=== PATIENT | female | born 1985 | race Caucasian/White ===

== ENCOUNTER 2020-05-01 18:33 | Inpatient (IN) | payer MEDICAID ==
[~2020-05-01] VITALS: Ht 162.6 cm; Wt 140.7 kg
[2020-05-01 20:15] LABS: HEMATOCRIT 48.5 % (36.0-48.0); HEMOGLOBIN 17.8 g/dL (12-16); MCH 32.5 pg (26.0-34.0); MCHC 36.7 g/dL (31.0-37.0); MCV 88.5 fL (80.0-100.0); MEAN PLATELET VOLUME 11.1 fL (7.4-10.4); PLATELET COUNT 284 10x3/uL (130-400); RBC 5.48 10x6/uL (4.00-5.40); WBC 13.3 10x3/uL (4.8-10.8)
--- NOTE | 2020-05-01 20:30 | NUR ---
FSBS 437
[2020-05-01 20:31] LABS: ALKALINE PHOSPHATASE 92 U/L (30-120); AMYLASE - SERUM 64 U/L (25-115); BILIRUBIN - TOTAL 0.82 mg/dL (0.2-1.3); CALCIUM 8.6 mg/dL (8.5-10.1); CARBON DIOXIDE 13.3 mmol/L (21.0-32.0); CHLORIDE - SERUM 94 mmol/L (98-107); POTASSIUM - SERUM 4.1 mmol/L (3.5-5.1); SODIUM 129 mmol/L (136-145); TROPONIN-I < 0.017 ng/mL (0.000-0.060); UREA NITROGEN 10 mg/dL (7-18); eGFR NON AFRICAN AMERICAN > 90 mL/min (90-120)
[2020-05-01 20:32] LABS: CALC OSMOLALITY 278 mosm/kg (275-300); CREATININE - SERUM 0.7 mg/dL (0.6-1.3); LIPASE 1629 U/L (73-393)
[2020-05-01 20:33] LABS: ALBUMIN 3.7 g/dL (3.4-5.0); GLUCOSE 468 mg/dL (74-106)
[2020-05-01 20:48] VITALS: BP 146/95
[2020-05-01 21:08] LABS: EOSINOPHILS 1 % (0-7); LYMPHOCYTES 19 % (15-50); NEUTROPHILS 80 % (40-80); PLATELET ESTIMATE NORMAL
[2020-05-01 22:47] VITALS: BP 150/90
--- NOTE | 2020-05-01 22:47 | NUR ---
FSBS 390. EDP INFORMED
[2020-05-01 23:34] LABS: BILIRUBIN NEGATIVE (NEGATIVE); GLUCOSE 1000 mg/dL (NEGATIVE); KETONE LARGE mg/dL (NEGATIVE); NITRITE NEGATIVE (NEGATIVE); UROBILINOGEN NORMAL (NORMAL)
[2020-05-02] VITALS (20 sets, daily range): BP systolic 111–183; BP diastolic 68–114; Ht 162.6 cm; Wt 140.7 kg
[2020-05-02 04:53] LABS: HCG URINE NEGATIVE (NEGATIVE)
[2020-05-02 05:18] LABS: BASOPHILS 0.2 % (0-2); EOSINOPHILS 0.1 % (0-7); HEMATOCRIT 42.5 % (36.0-48.0); HEMOGLOBIN 15.2 g/dL (12-16); IMMATURE GRANULOCYTES 0.4 % (0-5); LYMPHOCYTES 16.4 % (15-50); MCH 31.5 pg (26.0-34.0); MCHC 35.8 g/dL (31.0-37.0); MEAN PLATELET VOLUME 11.5 fL (7.4-10.4); MONOCYTES 7.2 % (2-11); NEUTROPHILS 75.7 % (40-80); PLATELET COUNT 258 10x3/uL (130-400); RBC 4.83 10x6/uL (4.00-5.40); RDW 13.1 % (11.5-14.5); WBC 13.4 10x3/uL (4.8-10.8)
[2020-05-02 05:40] LABS: GLUCOSE 247 mg/dL (74-106); UREA NITROGEN 10 mg/dL (7-18)
[2020-05-02 05:41] LABS: ALT (SGPT) 30 U/L (10-68); CALC OSMOLALITY 285 mosm/kg (275-300); CALCIUM 8.4 mg/dL (8.5-10.1); CARBON DIOXIDE 16.4 mmol/L (21.0-32.0); CHLORIDE - SERUM 107 mmol/L (98-107); CREATININE - SERUM 0.8 mg/dL (0.6-1.3); POTASSIUM - SERUM 4.1 mmol/L (3.5-5.1); SODIUM 140 mmol/L (136-145); eGFR NON AFRICAN AMERICAN 86 mL/min (90-120)
[2020-05-02 05:42] LABS: ALBUMIN 3.6 g/dL (3.4-5.0); ALKALINE PHOSPHATASE 70 U/L (30-120); PROTEIN - SERUM 6.4 g/dL (6.4-8.2)
[2020-05-02 07:17] LABS: ALT (SGPT) 34 U/L (10-68); PROTEIN - SERUM 7.2 g/dL (6.4-8.2)
[2020-05-02 12:56] LABS: CREATININE - SERUM 0.5 mg/dL (0.6-1.3); GLUCOSE 186 mg/dL (74-106); MAGNESIUM - SERUM 1.7 mg/dL (1.8-2.4); UREA NITROGEN 11 mg/dL (7-18); eGFR NON AFRICAN AMERICAN > 90 mL/min (90-120)
[2020-05-02 12:57] LABS: CALC OSMOLALITY 275 mosm/kg (275-300); CALCIUM 7.9 mg/dL (8.5-10.1); CARBON DIOXIDE 19.1 mmol/L (21.0-32.0); CHLORIDE - SERUM 104 mmol/L (98-107); POTASSIUM - SERUM 3.7 mmol/L (3.5-5.1); SODIUM 136 mmol/L (136-145)
[2020-05-02 16:51] LABS: CALCIUM 8.6 mg/dL (8.5-10.1); CARBON DIOXIDE 18.5 mmol/L (21.0-32.0); CHLORIDE - SERUM 106 mmol/L (98-107); GLUCOSE 204 mg/dL (74-106); MAGNESIUM - SERUM 1.7 mg/dL (1.8-2.4); SODIUM 136 mmol/L (136-145)
[2020-05-02 17:09] LABS: CALC OSMOLALITY 275 mosm/kg (275-300); CREATININE - SERUM 0.7 mg/dL (0.6-1.3); POTASSIUM - SERUM 3.1 mmol/L (3.5-5.1); UREA NITROGEN 8 mg/dL (7-18); eGFR NON AFRICAN AMERICAN > 90 mL/min (90-120)
--- NOTE | 2020-05-02 19:36 | NUR ---
REPORT RECEIVED, WILL CONTINUE POC. PATIENT IS AAOX4, LYING IN SEMI-FOWLERS POSITION. NO S/S OF DISTRESS OBSERVED, RR EVEN AND UNLABORED ON ROOM AIR. PATIENT ASKING ABOUT WHEN SHE CAN EAT, EDUCATED PATIENT ON INSULIN DRIP AND PROTOCOLS AND WHAT TO EXPECT. PATIENT EXPRESSES UNDERSTANDING. PATIENT DENIES FURTHER NEEDS AT THIS TIME. CL IN REACH, BED LOCKED AND LOWERED. WILL CTM.
--- NOTE | 2020-05-02 19:56 | NUR ---
CALLED PHARMACY FOR KAYCEE.
--- NOTE | 2020-05-02 20:14 | NUR ---
EMPTIED 300CC CONCENTRATED URINE FROM BEDSIDE COMMODE.
--- NOTE | 2020-05-02 21:11 | NUR ---
RECEIVED KAYCEE FROM PHARMACY @[facility], FSBS 135, 20UNITS ADMINISTERED PER ORDERS.
--- NOTE | 2020-05-02 23:10 | NUR ---
D/C'D INSULIN DRIP PER ORDERS. FSBS 127. PATIENT REQUESTED SANDWICH BOX AND ICE WATER, PROVIDED. SWITCHED IV ELECTROLYTE PROTOCOL TO FINISH BY PO.
[2020-05-03] VITALS (14 sets, daily range): BP systolic 120–182; BP diastolic 65–122
--- NOTE | 2020-05-03 00:36 | NUR ---
I have reviewed this patient and I concur with the Shift Assessment completed by the Licensed Practical Nurse today this shift.
--- NOTE | 2020-05-03 01:44 | NUR ---
PATIENT C/O THE ROOM BEING TOO WARM. WENT TO ADJUST ROOM TEMP BUT IT WAS ALREADY ON THE LOWEST SETTING. KEPT DOOR OPEN TO COOL ROOM DOWN.
--- NOTE | 2020-05-03 01:55 | NUR ---
SET UP FAN IN PATIENTS ROOM.
--- NOTE | 2020-05-03 03:00 | NUR ---
PATIENT RESTING WITH EYES CLOSED. NO S/S OF DISTRESS OBSERVED, RR EVEN AND UNLABORED ON ROOM AIR.
--- NOTE | 2020-05-03 05:00 | NUR ---
PATIENT RESTING WITH EYES CLOSED. NO S/S OF DISTRESS OBSERVED, RR EVEN AND UNLABORED ON ROOM AIR. CL IN REACH, BED LOCKED AND LOWERED. WILL CTM.
--- NOTE | 2020-05-03 06:59 | NUR ---
EMPTIED 700CC OF CONCENTRATED URINE FROM PATIENTS BEDSIDE COMMODE.
--- NOTE | 2020-05-03 07:00 | NUR ---
REPORT RECIEVED, SHIFT ASSESSMENT COMPLETE, PT IS ALERT AND ORIENTED, ALL PPP, VSS, CALL LIGHT IN REACH
[2020-05-03 07:56] LABS: ALBUMIN 2.7 g/dL (3.4-5.0); ALKALINE PHOSPHATASE 64 U/L (30-120); BILIRUBIN - TOTAL 0.49 mg/dL (0.2-1.3); CARBON DIOXIDE 22.4 mmol/L (21.0-32.0); CHLORIDE - SERUM 105 mmol/L (98-107); CREATININE - SERUM 0.6 mg/dL (0.6-1.3); POTASSIUM - SERUM 3.5 mmol/L (3.5-5.1); PROTEIN - SERUM 6.3 g/dL (6.4-8.2); SODIUM 136 mmol/L (136-145); eGFR NON AFRICAN AMERICAN > 90 mL/min (90-120)
[2020-05-03 07:57] LABS: ALT (SGPT) 27 U/L (10-68); CALC OSMOLALITY 280 mosm/kg (275-300); GLUCOSE 258 mg/dL (74-106); UREA NITROGEN 12 mg/dL (7-18)
--- NOTE | 2020-05-03 09:00 | NUR ---
PT RESTING WITH EYES CLOSED, WILL CON'T TO MONITOR
--- NOTE | 2020-05-03 10:54 | NUR ---
Nutrition follow-up: Diet advanced to consistent CHO with po intake ~50% of meals Labs reviewed WT: 302# RDN will visit when out of ICU RDN following.
--- NOTE | 2020-05-03 11:00 | NUR ---
DR. WILSON AT BEDSIDE, NEW ORDERS RECIEVED,
--- NOTE | 2020-05-03 13:00 | NUR ---
PT RESTING AT THIS TIME, VSS, CALL LIGHT IN REACH
--- NOTE | 2020-05-03 15:00 | NUR ---
FAMILY AT BEDSIDE, UPDATE GIVEN
--- NOTE | 2020-05-03 17:00 | NUR ---
PT SITTING UP EATING DINNER, DENIES ANY NEEDS
[2020-05-04 03:00] VITALS: BP 111/64
[2020-05-04 04:55] LABS: BASOPHILS 0.3 % (0-2); EOSINOPHILS 2.3 % (0-7); HEMATOCRIT 36.8 % (36.0-48.0); HEMOGLOBIN 12.2 g/dL (12-16); IMMATURE GRANULOCYTES 0.3 % (0-5); LYMPHOCYTES 34.7 % (15-50); MCH 29.5 pg (26.0-34.0); MCHC 33.2 g/dL (31.0-37.0); MCV 88.9 fL (80.0-100.0); MEAN PLATELET VOLUME 10.9 fL (7.4-10.4); MONOCYTES 9.2 % (2-11); NEUTROPHILS 53.2 % (40-80); RBC 4.14 10x6/uL (4.00-5.40); RDW 13.6 % (11.5-14.5)
[2020-05-04 05:08] LABS: PLATELET COUNT 203 10x3/uL (130-400); WBC 6.9 10x3/uL (4.8-10.8)
[2020-05-04 05:12] LABS: CALCIUM 8.1 mg/dL (8.5-10.1); CARBON DIOXIDE 23.8 mmol/L (21.0-32.0); CHLORIDE - SERUM 104 mmol/L (98-107); CREATININE - SERUM 0.6 mg/dL (0.6-1.3); LIPASE 192 U/L (73-393); MAGNESIUM - SERUM 1.7 mg/dL (1.8-2.4); SODIUM 136 mmol/L (136-145); UREA NITROGEN 9 mg/dL (7-18); eGFR NON AFRICAN AMERICAN > 90 mL/min (90-120)
[2020-05-04 05:19] LABS: CALC OSMOLALITY 276 mosm/kg (275-300); GLUCOSE 209 mg/dL (74-106); POTASSIUM - SERUM 2.9 mmol/L (3.5-5.1)
[2020-05-04 07:00] VITALS: BP 126/80
--- NOTE | 2020-05-04 07:00 | NUR ---
REPORT RECIEVED, SHIFT ASSESSMENT COMPLETE, PT IS ALERT AND ORIENTED, ON RA WITH 97% O2 SAT. ALL PPP, VSS, CALL LIGHT IN REACH
--- NOTE | 2020-05-04 09:00 | NUR ---
PT RESTING AT THIS TIME, NO NEEDS NOTED, WILL CON'T TO MONITOR
[2020-05-04 11:00] VITALS: BP 129/77
--- NOTE | 2020-05-04 11:40 | NUR ---
PT SITTING UP ON SIDE OF BED EATING LUNCH
--- NOTE | 2020-05-04 13:20 | NUR ---
NO NEEDS NOTED AT THIS TIME, WILL CON'T TO MONITOR
--- NOTE | 2020-05-04 15:30 | NUR ---
FAMILY AT BEDSIDE, UPDATE GIVEN
--- NOTE | 2020-05-04 17:29 | NUR ---
SUPPER TRAY GIVEN,
[2020-05-04 20:00] VITALS: BP 116/73
[2020-05-05] VITALS: BP 122/53
[2020-05-05 04:00] VITALS: BP 114/58
--- NOTE | 2020-05-05 06:08 | NUR ---
ASSESSED AT THE TIME SHE WAS BROUGHT FROM ICU AT THE BEGINNING OF THE SHIFT. SHE IS ALERT AND ORIENTED, ABLE TO VERBALIZE NEEDS. SHE HAS BEEN UP AD ANUEL TO THE BATHROOM WITH NO PROBLEM AND IS ON ROOM AIR.
--- NOTE | 2020-05-05 06:11 | NUR ---
PT'S BLOOD SUGAR LAST NIGHT WAS 325 AND THE MD HAD CHANGED IT TO 70/30 INSULIN. IT WAS GIVEN ORDERED. WILL CHECK LABS THIS AM TO SEE IF IT WAS EFFECTIVE IN BRINGING DOWN THE BLOOD SUGAR. HER NEXT ACC CHECK IS AT 0900.
--- NOTE | 2020-05-05 09:00 | NUR ---
ALERT AND ORIENTED X4. PATIENT EDUCATION GIVEN RELATED TO DM. PATIENT WAS INTRUCTED AND DEMONSTRATED PROPER ASEPTIC TECNIQUE ON DRAWING INSULIN AND GIVENING. PATIENT ADMINISTERED OWN INSULIN TO ABDOMEN. DENIES ANY PAIN OR DISCOMFORT AT THIS TIME. ABDOMEN OBESE WITH PANNUS WITHNO SKIN ISSURES NOTED. ENCOURAGED TO USE CALL LIGHT FOR ASSSIT.
[2020-05-05 10:29] VITALS: BP 148/93
[2020-05-05 12:09] LABS: CALCIUM 8.7 mg/dL (8.5-10.1); CARBON DIOXIDE 23.7 mmol/L (21.0-32.0); CHLORIDE - SERUM 102 mmol/L (98-107); CREATININE - SERUM 0.6 mg/dL (0.6-1.3); SODIUM 134 mmol/L (136-145); UREA NITROGEN 11 mg/dL (7-18); eGFR NON AFRICAN AMERICAN > 90 mL/min (90-120)
[2020-05-05 12:14] LABS: CALC OSMOLALITY 279 mosm/kg (275-300); GLUCOSE 329 mg/dL (74-106); POTASSIUM - SERUM 3.4 mmol/L (3.5-5.1)
--- NOTE | 2020-05-05 13:20 | NUR ---
Nutrition education for DMT2: Pt reports she stopped taking her diabetes medication 2/2 making her stomach hurt. Pt has had nutrition education before; hoever, pt just chooses not to follow recommendations. Pt was able to identify some CHO on her meal tray. Reviewed CHO containing foods and the affect CHO have on glucose. Pt repports having a glucometer at home and checking glucose regularly. Pt with fair understanding of information provided. Provided pt with printed diet information and RDN name and phone number. RDN will be available if needed. Thank you for the consult.
[2020-05-05 13:47] VITALS: BP 147/76
[2020-05-05] MEDS ORDERED: HUMULIN 70100 UNIT/1 SC (16:06)
--- NOTE | 2020-05-05 17:05 | NUR ---
IV DISCONTINUED AND VERBALIZED UNDERSTANDING OF DISCHARGE INSTRUCTIONS. STABLE AT TIME OF DISCHARGE.
== END 2020-05-05 17:05 | disposition home or self-care (01) | DRG 438 ==
LOC: EDBD 18:33 → D.ER 18:33 → D.ICU 22:44 → D.MS 05-04 19:07
PROVIDERS: Family Medicine; ADMIT Family Medicine; ATTEND Family Medicine
DX: K85.90 Acute pancreatitis without necrosis or infection, unspecified (principal); E11.10 Type 2 diabetes mellitus with ketoacidosis without coma; E87.1 Hypo-osmolality and hyponatremia; E87.2 Acidosis; E11.65 Type 2 diabetes mellitus with hyperglycemia; E66.01 Morbid (severe) obesity due to excess calories; F32.9 Major depressive disorder, single episode, unspecified; R00.0 Tachycardia, unspecified

== ENCOUNTER 2020-07-24 08:54 | Emergency (ER) | payer MEDICAID ==
[~2020-07-24] VITALS: Ht 162.6 cm; Wt 133.2 kg
[~2020-07-24 08:54] MED LIST: HUMULIN 70100 UNIT/1 SC
[2020-07-24 08:57] VITALS: Ht 162.6 cm; Wt 133.2 kg
[2020-07-24 09:34] LABS: BILIRUBIN NEGATIVE (NEGATIVE); KETONE NEGATIVE (NEGATIVE); NITRITE NEGATIVE (NEGATIVE); UROBILINOGEN NORMAL (NORMAL)
[2020-07-24 09:36] LABS: BACTERIA FEW /hpf (NONE SEEN); EPITHELIAL CELLS 0-5 /hpf (0-5); HCG URINE NEGATIVE (NEGATIVE); RED CELLS - URINE 0-5 /hpf (0-5); WHITE CELLS - URINE 0-5 /hpf (0-5)
[2020-07-24] MEDS ORDERED: ACETAMINOPHEN500 M1 PO (12:01)
[2020-07-24] MEDS ORDERED: CYCLOBENZAPRINE10 MG PO (12:01)
[2020-07-24] MEDS ORDERED: IBUPROFEN800 MG PO (12:01)
[2020-07-24] MEDS ORDERED: LEVOFLOXACIN500 MG PO (12:04)
[2020-07-24 12:13] VITALS: BP 122/83
== END 2020-07-24 12:14 | disposition home or self-care (01) ==
LOC: D.ER 08:54
PROVIDERS: Family Medicine
DX: M54.6 Pain in thoracic spine (principal); M79.18 Myalgia, other site; T14.8XXA Other injury of unspecified body region, initial encounter; N39.0 Urinary tract infection, site not specified; E11.9 Type 2 diabetes mellitus without complications; Z79.4 Long term (current) use of insulin

== ENCOUNTER 2020-08-17 07:40 | Inpatient (IN) | payer MEDICAID ==
[~2020-08-17] VITALS: Ht 162.6 cm; Wt 143.4 kg
[~2020-08-17 07:40] MED LIST changes: +ACETAMINOPHEN500 M1 PO; +CYCLOBENZAPRINE10 MG PO; +IBUPROFEN800 MG PO; +LEVOFLOXACIN500 MG PO
--- NOTE | 2020-08-17 09:31 | NUR ---
0830-PATIENT TO MRI
--- NOTE | 2020-08-17 10:17 | NUR ---
1015 RETURNED FROM MRI
[2020-08-17 11:02] LABS: BASOPHILS 0.2 % (0-2); EOSINOPHILS 0.1 % (0-7); HEMATOCRIT 38.9 % (36.0-48.0); IMMATURE GRANULOCYTES 0.2 % (0-5); LYMPHOCYTES 14.2 % (15-50); MCHC 33.4 g/dL (31.0-37.0); MCV 89.6 fL (80.0-100.0); MEAN PLATELET VOLUME 9.9 fL (7.4-10.4); MONOCYTES 4.6 % (2-11); NEUTROPHILS 80.7 % (40-80); RBC 4.34 10x6/uL (4.00-5.40); RDW 13.3 % (11.5-14.5); WBC 8.9 10x3/uL (4.8-10.8)
[2020-08-17 11:08] LABS: PLATELET COUNT 290 10x3/uL (130-400)
[2020-08-17 11:10] LABS: CALC OSMOLALITY 284 mosm/kg (275-300); CALCIUM 9.1 mg/dL (8.5-10.1); CARBON DIOXIDE 22.7 mmol/L (21.0-32.0); CHLORIDE - SERUM 103 mmol/L (98-107); CREATININE - SERUM 0.7 mg/dL (0.6-1.3); GLUCOSE 246 mg/dL (74-106); POTASSIUM - SERUM 4.5 mmol/L (3.5-5.1); SODIUM 137 mmol/L (136-145); UREA NITROGEN 21 mg/dL (7-18); eGFR NON AFRICAN AMERICAN > 90 mL/min (90-120)
[2020-08-17 11:13] VITALS: BP 121/83
[2020-08-17 11:16] LABS: ALBUMIN 3.5 g/dL (3.4-5.0); ALKALINE PHOSPHATASE 63 U/L (30-120); ALT (SGPT) 22 U/L (10-68); BILIRUBIN - TOTAL 0.13 mg/dL (0.2-1.3); C-REACTIVE PROTEIN 0.2 mg/dL (0.0-0.9); PROTEIN - SERUM 7.2 g/dL (6.4-8.2)
[2020-08-17 11:19] LABS: INR 1.12 (0.85-1.17); PROTIME 14.4 SECONDS (11.6-15.0)
[2020-08-17 16:50] VITALS: BP 150/65
--- NOTE | 2020-08-17 18:30 | NUR ---
PT C/O UNABLE TO VOID WITH ABDOMINAL PRESSURE. BLADDER SCANNED PT 900 CC OF URINE READ. PER PROVIDER LAXMI PLACE KELLER CATHETER. 16 FR KELLER CATHETER PLACED WITH TUBE SECURED TO LEFT UPPER LEG TEA COLORED URINE DISPLAYED IN CATH BAG.
[2020-08-17 18:33] VITALS: BP 133/74
[2020-08-17 18:43] LABS: UDS - AMPHET NEGATIVE QUAL (NEGATIVE); UDS - BARB NEGATIVE QUAL (NEGATIVE); UDS - BENZO NEGATIVE QUAL (NEGATIVE); UDS - COCAINE NEGATIVE QUAL (NEGATIVE); UDS - OPIATE NEGATIVE QUAL (NEGATIVE); UDS - PCP NEGATIVE QUAL (NEGATIVE); UDS - THC NEGATIVE QUAL (NEGATIVE)
[2020-08-17 18:47] LABS: BILIRUBIN NEGATIVE (NEGATIVE); KETONE SMALL mg/dL (NEGATIVE); NITRITE NEGATIVE (NEGATIVE); UROBILINOGEN NORMAL mg/dL (< 2); WHITE CELLS - URINE 0-5 HPF (0-4)
[2020-08-17 18:48] LABS: BACTERIA FEW HPF (NONE SEEN); EPITHELIAL CELLS 0-5 /hpf (0-5)
--- NOTE | 2020-08-17 19:16 | NUR ---
EMPTIED 1200 CC OF TEA COLORED URINE FROM CATH BAG.
[2020-08-17 20:04] VITALS: BP 115/70
[2020-08-17 21:26] VITALS: BP 119/62
[2020-08-18] VITALS (17 sets, daily range): BP systolic 92–141; BP diastolic 48–79; Ht 162.6 cm; Wt 143.4 kg
[2020-08-18] MEDS ORDERED: NOVOLOG100 UNIT/1 SC ×2 (00:21→00:27)
[2020-08-18] MEDS ORDERED: LANTUS INS100 UNITS/ SC (00:29)
[2020-08-18] MEDS ORDERED: CELEXA40 MG POINH (00:31)
[2020-08-18] MEDS ORDERED: PIOGLITAZONE15 MG PO (00:32)
[2020-08-18] MEDS ORDERED: ZOCOR20 MG PO (00:33)
[2020-08-18] MEDS ORDERED: AMBIEN10 MG PO (00:40)
[2020-08-18] MEDS ORDERED: MOBIC7.5 MG PO (00:43)
[2020-08-18 06:43] LABS: BASOPHILS 0.1 % (0-2); EOSINOPHILS 0.2 % (0-7); HEMATOCRIT 37.7 % (36.0-48.0); HEMOGLOBIN 12.3 g/dL (12-16); IMMATURE GRANULOCYTES 0.2 % (0-5); MCH 29.3 pg (26.0-34.0); MCHC 32.6 g/dL (31.0-37.0); MCV 89.8 fL (80.0-100.0); MEAN PLATELET VOLUME 9.6 fL (7.4-10.4); MONOCYTES 8.7 % (2-11); NEUTROPHILS 68.8 % (40-80); RDW 13.5 % (11.5-14.5)
[2020-08-18 06:45] LABS: PLATELET COUNT 364 10x3/uL (130-400)
[2020-08-18 07:03] LABS: CALC OSMOLALITY 278 mosm/kg (275-300); CALCIUM 9.1 mg/dL (8.5-10.1); CARBON DIOXIDE 25.5 mmol/L (21.0-32.0); CHLORIDE - SERUM 103 mmol/L (98-107); CREATININE - SERUM 0.6 mg/dL (0.6-1.3); GLUCOSE 167 mg/dL (74-106); MAGNESIUM - SERUM 2.1 mg/dL (1.8-2.4); PHOSPHOROUS 3.9 mg/dL (2.5-4.9); POTASSIUM - SERUM 3.5 mmol/L (3.5-5.1); SODIUM 137 mmol/L (136-145); UREA NITROGEN 16 mg/dL (7-18); eGFR NON AFRICAN AMERICAN > 90 mL/min (90-120)
[2020-08-18 07:16] LABS: INR 1.2 (0.85-1.17); PROTIME 15.1 SECONDS (11.6-15.0)
[2020-08-18 11:19] LABS: HCG SERUM NEGATIVE (NEGATIVE)
--- NOTE | 2020-08-18 14:19 | NUR ---
NO DIFFICULTY SWALLOWING NO TRACHAEL DEVIATION NO NUMBNESS TO UPPER AND LOWER EXTREMETIES EQUAL STRENGHTS TO UPPER EXTREMETIES REPORTS NO MOVMENT TO RT LOWER EXTREMETRY
--- NOTE | 2020-08-18 14:22 | NUR ---
PT REPORTED NO NUMBNESS TO RT LEG BUT NO MOVEMENT OBSERVED
--- NOTE | 2020-08-18 17:42 | NUR ---
PATIENT DENIES NEEDS AT THIS TIME. FREE FROM SIGNS OF DISTRESS. WILL CONTINUE TO MONITOR.
--- NOTE | 2020-08-18 17:45 | NUR ---
SPOKE WITH DR. GARCIA ABOUT TRANSFERRING PATIENT TO CVICU. DR. GARCIA STATED "YES, PATIENT NEEDS TO BE IN CVICU FOR OBSERVATION." CALLED BATH TESTER TO RELAY MESSAGE.
--- NOTE | 2020-08-18 19:20 | NUR ---
REPORT REC'D AND CARE ASSUMED, REC'D PT RESTING IN BED ON O2 @ 3 LITERS VIA NC, AWAKENS TO VERBAL STIMULI, ORIENTED X 4, LEFT UPPER CHEST PIV D51/2NS @ 75CC/HR, LEFT ANTERIOR NECK INCISION WITH DERMABOND, CDI, LEFT HAND PIV TAPED SECURELY, SALINE LOCKED, KELLER PATENT DRAINING CLEAR YELLOW URINE, PPP, LEFT TELLER HEAD STRONGER THAN RIGHT, ABLE TO RAISE BOTH ARMS, BENDS LEFT KNEE BUT BARELY MOVES RIGHT LEG TO ATTEMPT TO BEND KNEE, PREVIOUSLY REPORTED BY AM SHIFT TO DR. GARCIA, WILL MONITOR CLOSELY FOR CHANGES, SR UP X 2, CALL LIGHT IN REACH.
--- NOTE | 2020-08-18 21:05 | NUR ---
PT AWAKE COMPLAINS OF FEELING "LIKE I AM GOING TO THROW UP", ZOFRAN GIVEN SLOW IVP FOR NAUSEA, OTHER ROUTINE MEDS GIVEN AT THIS TIME, PT DENIES FURTHER NEEDS.
[2020-08-19] VITALS (24 sets, daily range): BP systolic 100–134; BP diastolic 63–82
--- NOTE | 2020-08-19 01:10 | NUR ---
PT MORE ALERT, DENIES NAUSEA AT THIS TIME AND ONLY SLIGHT DISCOMFORT, REFUSES ANY PAIN MEDICATION AT THIS TIME, PT REPORTS UPPER EXT'S FEEL BETTER WITH NO NUMBNESS OR TINGLING, BILAT LOWER EXT'S WITH TINGLING SENSATION, CAN MOVE LEFT LEFT WITHOUT DIFFICULTY, SLIGHT FLEXION OF RIGHT LEG NOTED, RIGHT LEG STRENGTH SLIGHTLY WEAKER THAN LEFT, ICE CHIPS PROVIDED ON REQUEST
[2020-08-19 08:15] LABS: BASOPHILS 0 % (0-2); EOSINOPHILS 0 % (0-7); HEMATOCRIT 40.8 % (36.0-48.0); HEMOGLOBIN 13.3 g/dL (12-16); IMMATURE GRANULOCYTES 0.2 % (0-5); LYMPHOCYTES 6.4 % (15-50); MCH 29.6 pg (26.0-34.0); MCHC 32.6 g/dL (31.0-37.0); MCV 90.7 fL (80.0-100.0); MEAN PLATELET VOLUME 9.3 fL (7.4-10.4); MONOCYTES 5.2 % (2-11); NEUTROPHILS 88.2 % (40-80); PLATELET COUNT 325 10x3/uL (130-400); RDW 13.4 % (11.5-14.5)
[2020-08-19 08:22] LABS: WBC 16.1 10x3/uL (4.8-10.8)
[2020-08-19 08:50] LABS: ALBUMIN 3.6 g/dL (3.4-5.0); ALKALINE PHOSPHATASE 70 U/L (30-120); ALT (SGPT) 24 U/L (10-68); BILIRUBIN - TOTAL 0.34 mg/dL (0.2-1.3); CALC OSMOLALITY 287 mosm/kg (275-300); CARBON DIOXIDE 26.7 mmol/L (21.0-32.0); CHLORIDE - SERUM 100 mmol/L (98-107); CREATININE - SERUM 0.7 mg/dL (0.6-1.3); GLUCOSE 292 mg/dL (74-106); POTASSIUM - SERUM 3.9 mmol/L (3.5-5.1); PROTEIN - SERUM 7.5 g/dL (6.4-8.2); SODIUM 138 mmol/L (136-145); UREA NITROGEN 16 mg/dL (7-18); eGFR NON AFRICAN AMERICAN > 90 mL/min (90-120)
--- NOTE | 2020-08-19 18:57 | NUR ---
Rehab Note- Acute Rehab prescreen order recieved. The patient has [employer] insurance and will require a PreAuth prior to an inpatient rehab stay. She has a pending PT Eval and will need an OT Eval ordered for the PreAuth process. Thank you for this referral! Emmy Motta RN Clinical Liaison, [facility] Rehab
--- NOTE | 2020-08-19 19:30 | NUR ---
REPORT REC'D AND CARE ASSUMED, REC'D PT LAYING IN BED WATCHING TV, ON ROOM AIR, AWAKE, ALERT, ORIENTED X 4, LEFT HAND PIV SALINE LOCKED, LEFT UPPER CHEST PIV WITH D51/2NS @ 50CC/HR, LEFT ANTERIOR NECK INCISION OPEN TO AIR, CDI, BILAT UPPER EXT DIRECTOR PROJECT MANAGEMENT STRENGTH EQUAL, RIGHT LEG WEAKER THAN LEFT, PT ABLE TO RAISE AND FLEX LEG MORE THAN PREVIOUS DAY, CONTINUES TO REPORT SLIGHT NUMBENESS THROUGHOUT RIGHT LEG, REPORTS RIGHT TOES COMPLETELY NUMB, KELLER PATENT DRAINING CLEAR YELLOW URINE, PPP, SR UP X 2 ,CALL LIGHT IN REACH.
[2020-08-20] VITALS (23 sets, daily range): BP systolic 99–134; BP diastolic 39–85
[2020-08-20 06:45] LABS: BASOPHILS 0 % (0-2); EOSINOPHILS 0 % (0-7); HEMATOCRIT 38.6 % (36.0-48.0); HEMOGLOBIN 12.6 g/dL (12-16); IMMATURE GRANULOCYTES 0.3 % (0-5); LYMPHOCYTES 6.7 % (15-50); MCH 29.4 pg (26.0-34.0); MCHC 32.6 g/dL (31.0-37.0); MEAN PLATELET VOLUME 9.5 fL (7.4-10.4); PLATELET COUNT 312 10x3/uL (130-400); RBC 4.29 10x6/uL (4.00-5.40); RDW 13.5 % (11.5-14.5); WBC 13.5 10x3/uL (4.8-10.8)
[2020-08-20 07:00] LABS: ALKALINE PHOSPHATASE 61 U/L (30-120); ALT (SGPT) 30 U/L (10-68); BILIRUBIN - TOTAL 0.25 mg/dL (0.2-1.3); CALC OSMOLALITY 280 mosm/kg (275-300); CALCIUM 8.6 mg/dL (8.5-10.1); CHLORIDE - SERUM 101 mmol/L (98-107); CREATININE - SERUM 0.7 mg/dL (0.6-1.3); GLUCOSE 285 mg/dL (74-106); MAGNESIUM - SERUM 2.2 mg/dL (1.8-2.4); POTASSIUM - SERUM 3.8 mmol/L (3.5-5.1); SODIUM 135 mmol/L (136-145); UREA NITROGEN 16 mg/dL (7-18); eGFR NON AFRICAN AMERICAN > 90 mL/min (90-120)
--- NOTE | 2020-08-20 09:58 | NUR ---
PT EVAL DONE. PT UP TO BSC AND DID HAVE BM. ASSISTED TO CHAIR FOR BATH.
--- NOTE | 2020-08-20 14:35 | NUR ---
ASSISTED PT BACK TO BED WITH WALKER.
[2020-08-21] VITALS (14 sets, daily range): BP systolic 112–142; BP diastolic 63–86
[2020-08-21 06:26] LABS: BASOPHILS 0 % (0-2); EOSINOPHILS 0 % (0-7); HEMATOCRIT 38.8 % (36.0-48.0); HEMOGLOBIN 12.5 g/dL (12-16); IMMATURE GRANULOCYTES 0.4 % (0-5); LYMPHOCYTES 8.8 % (15-50); MCH 29.1 pg (26.0-34.0); MCHC 32.2 g/dL (31.0-37.0); MCV 90.4 fL (80.0-100.0); MEAN PLATELET VOLUME 9.9 fL (7.4-10.4); MONOCYTES 5.5 % (2-11); NEUTROPHILS 85.3 % (40-80); PLATELET COUNT 327 10x3/uL (130-400); RBC 4.29 10x6/uL (4.00-5.40); RDW 13.5 % (11.5-14.5); WBC 11.1 10x3/uL (4.8-10.8)
[2020-08-21 06:51] LABS: ALKALINE PHOSPHATASE 62 U/L (30-120); ALT (SGPT) 26 U/L (10-68); BILIRUBIN - TOTAL 0.28 mg/dL (0.2-1.3); CALC OSMOLALITY 283 mosm/kg (275-300); CALCIUM 8.8 mg/dL (8.5-10.1); CARBON DIOXIDE 26.8 mmol/L (21.0-32.0); CHLORIDE - SERUM 101 mmol/L (98-107); CREATININE - SERUM 0.6 mg/dL (0.6-1.3); GLUCOSE 308 mg/dL (74-106); MAGNESIUM - SERUM 2.2 mg/dL (1.8-2.4); POTASSIUM - SERUM 3.9 mmol/L (3.5-5.1); PROTEIN - SERUM 6.9 g/dL (6.4-8.2); SODIUM 135 mmol/L (136-145); UREA NITROGEN 19 mg/dL (7-18); eGFR NON AFRICAN AMERICAN > 90 mL/min (90-120)
--- NOTE | 2020-08-21 07:00 | NUR ---
FSBS TO 437, 20 UNITS OF HUMOLOG GIVEN PER S/S, CALLED JUDIE MOTLEY NOTED OF PT STATUS, NO ORDER RECD. CONT TO MONITOR.
--- NOTE | 2020-08-21 11:56 | NUR ---
1140 GAVE REPORT TO JOELLE ON [employer]. NOTIFIED OF FSBS OF 307.
--- NOTE | 2020-08-21 12:32 | NUR ---
Rehab Note- SPoke with Yovani to initiate preauth this AM, [facility], stated that no further action required and PreAuth waived with Private [employer] at this time due to Covid up till 09/08. Ref/Auth # [id number]. Spoke with Leandra Curtis CM this AM and will accept the patient today if in agreeance with [facility] Acute Inpatient Rehab. THank you for this referral! Emmy Motta RN Clinical Liaison, [facility] Rehab
--- NOTE | 2020-08-21 20:00 | NUR ---
LEFT SIDE LYING IN BED, PTs FACE IS FLUSHED, STATES THIS IS NORMAL FOR HER AFTER ROLLING AROUND IN BED. DENIES PAIN, REPORTS LIMITED MOVEMENT AND FEELING IN RLE. UP WITH WALKER, STANDBY ASSIST. CTM.
[2020-08-22] VITALS: BP 152/91
--- NOTE | 2020-08-22 02:23 | NUR ---
I have reviewed this patient and I concur with the Shift Assessment completed by the Licensed Practical Nurse today this shift.
[2020-08-22 04:00] VITALS: BP 139/77
[2020-08-22 06:45] LABS: BASOPHILS 0 % (0-2); EOSINOPHILS 0 % (0-7); HEMATOCRIT 40.4 % (36.0-48.0); HEMOGLOBIN 13.2 g/dL (12-16); LYMPHOCYTES 8.3 % (15-50); MCH 29.4 pg (26.0-34.0); MCHC 32.7 g/dL (31.0-37.0); MONOCYTES 6.1 % (2-11); NEUTROPHILS 84.6 % (40-80); PLATELET COUNT 329 10x3/uL (130-400); RBC 4.49 10x6/uL (4.00-5.40); RDW 13.3 % (11.5-14.5); WBC 10.3 10x3/uL (4.8-10.8)
[2020-08-22 07:00] VITALS: BP 114/53
[2020-08-22 07:05] LABS: ALBUMIN 3.1 g/dL (3.4-5.0); ALKALINE PHOSPHATASE 69 U/L (30-120); ALT (SGPT) 23 U/L (10-68); BILIRUBIN - TOTAL 0.33 mg/dL (0.2-1.3); CARBON DIOXIDE 25.4 mmol/L (21.0-32.0); CHLORIDE - SERUM 98 mmol/L (98-107); MAGNESIUM - SERUM 2.4 mg/dL (1.8-2.4); POTASSIUM - SERUM 3.9 mmol/L (3.5-5.1); SODIUM 133 mmol/L (136-145)
[2020-08-22 07:06] LABS: CALC OSMOLALITY 285 mosm/kg (275-300); CREATININE - SERUM 0.8 mg/dL (0.6-1.3); GLUCOSE 380 mg/dL (74-106); UREA NITROGEN 25 mg/dL (7-18); eGFR NON AFRICAN AMERICAN 86 mL/min (90-120)
--- NOTE | 2020-08-22 07:34 | NUR ---
PATIENT AWAKE LATING IN BED ON LEFT SIDE, STATED SHE HAD SOME PAIN LAST NIGHT AND THIS MORNING BUT THINKS IT IS FROM SLEEPING WRONG. NO S/SX OF DISTRESS, LUNGS CTA, IV IN LEFT HAND SL. PT TO BE DC TO REHAB TODAY. CL IN REACH CONTINUE WITH PLAN OF CARE
[2020-08-22 11:00] VITALS: BP 118/56
[2020-08-22] MEDS ORDERED: MIRALAX17 GM PO (11:04)
[2020-08-22] MEDS ORDERED: HUMALOG 30100 UNITS/ SC (11:04)
[2020-08-22] MEDS ORDERED: PHENERGAN IM (11:06)
[2020-08-22] MEDS ORDERED: IPRAT-ALBUT 0.5-3 ML INH (11:06)
[2020-08-22] MEDS ORDERED: METHOCARBAMOL750 MG PO (11:06)
[2020-08-22] MEDS ORDERED: GLUTOSE 1537.5 GM PO (11:07)
[2020-08-22] MEDS ORDERED: Dextrose 50%-Water I IV (11:07)
[2020-08-22] MEDS ORDERED: NEUTRA-PHOS PAC1 PK1 PO (11:08)
[2020-08-22] MEDS ORDERED: POTASSIUM20 MEQ/101 IV (11:08)
[2020-08-22] MEDS ORDERED: Potassium Cl oral po PO (11:08)
[2020-08-22] MEDS ORDERED: POTASSIUM10 MEQ/100 IV (11:08)
[2020-08-22] MEDS ORDERED: K-DUR20 MEQ PO (11:08)
[2020-08-22] MEDS ORDERED: GLUCAGEN IM (11:09)
[2020-08-22] MEDS ORDERED: Decadron INJ IV (11:09)
[2020-08-22] MEDS ORDERED: GLUCAGEN SC (11:09)
[2020-08-22] MEDS ORDERED: ZOFRAN INJ IV (11:09)
[2020-08-22] MEDS ORDERED: HYDROCODON-ACE1 EAC7 PO (11:12)
[2020-08-22] MEDS ORDERED: MEDROL DOSE PACK4 MG PO (12:32)
--- NOTE | 2020-08-24 11:53 | OP ---
PATIENT NAME: MICH MACEDO MEDICAL RECORD: [id number] :83 LOCATION:[id number] ADMISSION DATE:08/17/20 SURGEON: JEANNE HUBBARD MD DATE OF OPERATION: 08/18/2020 SURGEON: Jeanne Hubbard MD Anterior cervical discectomy and fusion at C6-C7 for decompression of spinal cord secondary to large disc herniation C6-C7. PREOPERATIVE DIAGNOSIS: Spinal cord injury secondary to acute disc herniation, C6-C7. POSTOPERATIVE DIAGNOSIS: Spinal cord injury secondary to acute disc herniation, C6-C7. PROCEDURE: Anterior cervical discectomy and fusion at C6-C7 with Zavation anterior cervical plate and screws with separate PEEK interbody cage, Rama bone allograft with stem cells. DESCRIPTION AND TECHNIQUE: After induction of general endotracheal anesthesia, the patient was positioned supine on the operating table. Neck was prepped and draped in usual sterile fashion. Fluoroscopic x-ray and freer localized the C6-C7 interspace. After infiltration of 1:100,000 epinephrine and 1% lidocaine, a transverse skin incision was carried out from the midline to the sternocleidomastoid muscle. The platysma was divided with Bovie cautery. Using blunt and sharp dissection with Metzenbaum scissors, I proceeded in avascular plane medial to the carotid sheath. The C6-C7 interspace was identified with fluoroscopic x-ray and spinal needle. The longus colli muscles were elevated from bodies of C6 and C7. A self-retaining retractor was placed deep to the longus colli muscles. [place] distracting pins were placed by C6 and C7. The disc space was incised under distraction. The disc material was removed with the pituitary rongeurs and curettes. There is a large disc herniation extruded through the posterior longitudinal ligament. This was removed in a piecemeal fashion with pituitary rongeurs. The posterior longitudinal ligament was removed with Cloward rongeurs. Following this, the dura was decompressed well. A PEEK interbody cage was placed in the disc space under distraction. Prior to this, it was filled with Rama bone allograft with stem cells. A midline Zavation anterior cervical plate and screws was used to span the C6-C7 interspace. Self-drilling screws were placed through the holes and plate. These were locking camps tightened down over the screw heads. Good position of the hardware was confirmed with fluoroscopic x-ray. Meticulous hemostasis was maintained throughout the wound. Wound was irrigated with copious amounts of Ancef irrigant solution. The platysma and subdermal layer closed with interrupted 3-0 Vicryl suture. The skin was reapproximated with Steri-Strips and benzoin. A sterile dressing was applied to the wound. The patient was awakened in good condition, taken to recovery. All counts were reported as correct. Estimated blood loss was minimal. TRANSINT:[id number] Voice Confirmation ID: [id number] DOCUMENT ID: [id number] OPERATIVE REPORT [id number] MICH MACEDO JOHN MD at 1153 CC: [id number] DICTATION DATE: 08/20/20 1227 SUPERVISOR TITLE: 08/21/20 0039 DIS IN 08/22/20 [facility] [address] [place] [address]
== END 2020-08-22 15:36 | DRG 28 ==
LOC: D.ER 07:40 → D.MS 12:05 → D.EDHOLD 12:05 → D.CVICU 12:05 → D.MS 22:08 → D.CVICU 08-18 18:30 → D.MS 08-21 11:57
PROVIDERS: Anesthesiology; Family Medicine; Family Medicine Adult Medicine; Neurological Surgery; ADMIT Family Medicine; ATTEND Family Medicine
PROC: 0RB30ZZ Excision of Cervical Vertebral Disc, Open Approach (ICD-10-PCS; 2020-08-18)
PROC: 0RG10A0 Fusion of Cervical Vertebral Joint with Interbody Fusion Device, Anterior Approach, Anterior Column, Open Approach (ICD-10-PCS; principal; 2020-08-18 10:15)
DX: G95.20 Unspecified cord compression (principal); G82.50 Quadriplegia, unspecified; E66.01 Morbid (severe) obesity due to excess calories; M50.223 Other cervical disc displacement at C6-C7 level; E11.65 Type 2 diabetes mellitus with hyperglycemia; F32.9 Major depressive disorder, single episode, unspecified

== ENCOUNTER 2020-08-22 15:54 | Inpatient (IN) | payer BC ==
[~2020-08-22] VITALS: Ht 162.6 cm; Wt 142.9 kg
[~2020-08-22 15:54] MED LIST changes: +AMBIEN10 MG PO; +CELEXA40 MG POINH; +Decadron INJ IV; +Dextrose 50%-Water I IV; +GLUCAGEN IM; +GLUCAGEN SC; +GLUTOSE 1537.5 GM PO; +HUMALOG 30100 UNITS/ SC; +HYDROCODON-ACE1 EAC7 PO; +IPRAT-ALBUT 0.5-3 ML INH; +K-DUR20 MEQ PO; +LANTUS INS100 UNITS/ SC; +MEDROL DOSE PACK4 MG PO; +METHOCARBAMOL750 MG PO; +MIRALAX17 GM PO; +MOBIC7.5 MG PO; +NEUTRA-PHOS PAC1 PK1 PO; +NOVOLOG100 UNIT/1 SC; +PHENERGAN IM; +PIOGLITAZONE15 MG PO; +POTASSIUM10 MEQ/100 IV; +POTASSIUM20 MEQ/101 IV; +Potassium Cl oral po PO; +ZOCOR20 MG PO; +ZOFRAN INJ IV
[2020-08-22 16:14] VITALS: BP 131/82; BMI 54.2
--- NOTE | 2020-08-22 19:14 | NUR ---
AWAKE AND ALERT. SITTING ON SIDE OF BED. C-COLLAR ON. RESPIRATIONS UNLABORED. NO DISTRESS NOTED. CALL LIGHT IN REACH.
[2020-08-22 20:11] VITALS: BP 129/61
--- NOTE | 2020-08-23 01:23 | NUR ---
RESTING IN BED WITH NO DISTRESS NOTED. CALL EDIN RAO.
--- NOTE | 2020-08-23 05:00 | NUR ---
QUIET HOURS. NO ACUTE CHANGES IN CONDITION THIS SHIFT. RESTING IN BED WITH NO DISTRESS NOTED.
[2020-08-23 05:41] LABS: BASOPHILS 0 % (0-2); EOSINOPHILS 0.4 % (0-7); HEMATOCRIT 40.7 % (36.0-48.0); HEMOGLOBIN 13.2 g/dL (12-16); IMMATURE GRANULOCYTES 0.7 % (0-5); LYMPHOCYTES 29.5 % (15-50); MCH 29.1 pg (26.0-34.0); MCHC 32.4 g/dL (31.0-37.0); MCV 89.8 fL (80.0-100.0); MEAN PLATELET VOLUME 9.6 fL (7.4-10.4); MONOCYTES 7.5 % (2-11); NEUTROPHILS 61.9 % (40-80); PLATELET COUNT 309 10x3/uL (130-400); RBC 4.53 10x6/uL (4.00-5.40); RDW 13.3 % (11.5-14.5)
[2020-08-23 05:47] LABS: WBC 12.9 10x3/uL (4.8-10.8)
[2020-08-23 06:00] LABS: CALC OSMOLALITY 284 mosm/kg (275-300); CALCIUM 8.3 mg/dL (8.5-10.1); CARBON DIOXIDE 27.8 mmol/L (21.0-32.0); CHLORIDE - SERUM 101 mmol/L (98-107); CREATININE - SERUM 0.7 mg/dL (0.6-1.3); POTASSIUM - SERUM 3.5 mmol/L (3.5-5.1); SODIUM 136 mmol/L (136-145); UREA NITROGEN 27 mg/dL (7-18); eGFR NON AFRICAN AMERICAN > 90 mL/min (90-120)
[2020-08-23 06:15] LABS: GLUCOSE 236 mg/dL (74-106)
[2020-08-23 07:23] VITALS: BP 133/76
--- NOTE | 2020-08-23 08:00 | NUR ---
SHIFT ASSMT COMPLETED.
--- NOTE | 2020-08-23 11:23 | NUR ---
PATIENT ADMITTED TO REHAB FROM ACUTE FLOOR. HER PCP IS DR. FONTANEZ . SHE WILL NEED AN APPOINTMENT WITH DR. GARCIA AT DISCHARGE. WILL CONTINUE TO FOLLOW WITH PATIENT.
--- NOTE | 2020-08-23 12:00 | NUR ---
SITTING UP EATING LUNCH.
[2020-08-23 12:56] VITALS: Ht 162.6 cm; Wt 142.9 kg
--- NOTE | 2020-08-23 13:00 | NUR ---
CARE TEAM MEETING: PATIENT IS NEW TO UNIT AND IS DOING WELL. HER TENATIVE DC DATE IS 08/25/20. WILL CONTINUE TO FOLLOW WITH PATIENT.
--- NOTE | 2020-08-23 16:00 | NUR ---
BRENDEN THERAPY TODAY.RESTING QUIETLY.
[2020-08-23 19:50] VITALS: BP 105/48
--- NOTE | 2020-08-23 19:58 | NUR ---
AWAKE AND ALERT. RESTING IN BED WITH RESPIRATIONS UNLABORED. SWEATING A LITTLE BUT AFEBRILE. STATES SHE IS JUST A LITTLE WARM. FAN OFFERED BUT PATIENT STATED "NO ITS OKAY." CALL LIGHT IN REACH.
--- NOTE | 2020-08-24 00:49 | NUR ---
RESTING QUIETLY. NO DISTRESS NOTED.
--- NOTE | 2020-08-24 03:11 | NUR ---
CONTINUES RESTING WITH NO DISTRESS NOTED.
--- NOTE | 2020-08-24 05:10 | NUR ---
QUIET HOURS. NO ACUTE CHANGES IN CONDITION THIS SHIFT. RESTING IN BED WITH NO DISTRESS NOTED. CALL LIGHT IN REACH.
[2020-08-24 08:00] VITALS: BP 118/79
--- NOTE | 2020-08-24 08:00 | NUR ---
SHIFT ASSMT COMPLETED.BREAKFAST EATEN IN THERAPY.CL IN REACH.
--- NOTE | 2020-08-24 18:52 | NUR ---
RECEIVED PT SITTING UP ON SIDE OF BED. ALERT AND ORIENTED X4. DENIES ANY NEEDS OR PAIN. NO ACUTE DISTRESS NOTED. LEFT ANTERIOR LATERAL GLUED INCISION WNL. NO DRAINGAGE NOTED. BED ALARM WAIVER ON FILE. CALL LIGHT AND WATER WITHIN REACH. FALL PRECAUTIONS IN PLACE. CPOC
[2020-08-24 20:40] VITALS: BP 134/79
--- NOTE | 2020-08-24 23:57 | NUR ---
PT LYING IN BED ON LEFT SIDE EYES CLOSED RESTING. RR EVEN AND UNLABORED. CALL LIGHT WITHIN REACH. WILL CONTINUE TO MONITOR
--- NOTE | 2020-08-25 01:53 | NUR ---
PT LYING IN BED ON LEFT SIDE EYES CLOSED RESTING. RR EVEN AND UNLABORED. CALL LIGHT WITHIN REACH
--- NOTE | 2020-08-25 04:10 | NUR ---
PT LYING IN BED ON RIGHT SIDE EYES CLOSED RESTING. RR EVEN AND UNLABORED. CALL LIGHT WITHIN REACH.
--- NOTE | 2020-08-25 05:45 | NUR ---
PT SITTING UP IN BED AWAKE. LAB AT BEDSIDE. DENIES ANY NEEDS OR PAIN. NO ACUTE CHANGES IN CONDITION THIS SHIFT. CALL LIGHT AND WATER WITHIN REACH. FALL PRECAUTIONS IN PLACE. CPOC
[2020-08-25 06:07] LABS: BASOPHILS 0.1 % (0-2); EOSINOPHILS 0.8 % (0-7); HEMOGLOBIN 14.2 g/dL (12-16); LYMPHOCYTES 19.6 % (15-50); MCH 29.5 pg (26.0-34.0); MCV 89.4 fL (80.0-100.0); MEAN PLATELET VOLUME 10.4 fL (7.4-10.4); MONOCYTES 5.1 % (2-11); NEUTROPHILS 73.4 % (40-80); PLATELET COUNT 191 10x3/uL (130-400); RBC 4.81 10x6/uL (4.00-5.40); RDW 13.3 % (11.5-14.5)
[2020-08-25 06:17] LABS: CALC OSMOLALITY 274 mosm/kg (275-300); CALCIUM 8.8 mg/dL (8.5-10.1); CARBON DIOXIDE 25.4 mmol/L (21.0-32.0); CHLORIDE - SERUM 98 mmol/L (98-107); CREATININE - SERUM 0.6 mg/dL (0.6-1.3); GLUCOSE 278 mg/dL (74-106); POTASSIUM - SERUM 4.4 mmol/L (3.5-5.1); SODIUM 131 mmol/L (136-145); UREA NITROGEN 18 mg/dL (7-18); eGFR NON AFRICAN AMERICAN > 90 mL/min (90-120)
[2020-08-25 08:00] VITALS: BP 116/68
[2020-08-25] MEDS ORDERED: HYDROCODON-ACE1 EAC7 PO (08:40)
[2020-08-25] MEDS ORDERED: METHOCARBAMOL750 MG PO (08:40)
--- NOTE | 2020-08-25 08:42 | RHP ---
PATIENT: MICH MACEDO MEDICAL RECORD: [id number] ACCOUNT: [id number] [facility] ADMISSION DATE: 08/22/20 REHABILITATION HISTORY AND PHYSICAL EXAMINATION POST ADMISSION PHYSICIAN EXAMINATION ADMITTING DIAGNOSIS: Traumatic spinal cord dysfunction. HISTORY OF PRESENT ILLNESS: The patient is a 34-year-old female patient who presents secondary to a large central disk protrusion at C6-C7 producing mass effect on the spinal cord. The patient is status post anterior cervical discectomy and fusion at C6-C7 decompression of spinal cord injury. She is morbidly obese, presented to ED after complaints of some thoracic pain following a fall and numbness of her left arm and right leg with motor deficits with her right leg. She was seen in the [place] ED the night before prior to this, was given 2 shots and sent home. She had no head injury or loss of consciousness. She has got a history of diabetes, morbid obesity, depression. The patient states that she started having a lot of back pain. She felt pain sensation in both of her upper extremities and noticed she was very weak on the right upper extremity and lost ability to grasp with the right hand. The patient was seen and evaluated. At that time, she could not walk. CT of her cervical spine showed a central disk protrusion at C6-C7 and she had significant mass effect on the spinal cord, which appeared thin and associated increased T2 significant for myelomalacia and spinal cord contusion. There was also moderate bilateral neural foraminal stenosis noted at this time. Neurosurgery was consulted. She underwent an emergent anterior cervical discectomy and fusion of C6-C7 for decompression by Dr. Hubbard. She has had a good outcome from the surgery and has ability to stand and ambulate with regaining sensation. She has diabetes and has had some elevated blood sugars. She has been receiving PT and progressing slowly during her stay. She is currently being monitored for pain control, that she gets medication adjustments depending on her blood sugar. We are monitoring her I's and O's, monitoring her for any signs of low sugars. She has got proximal muscle weakness, fatigue, shortness of breath, debility, deconditioning, impaired mobility, gait disturbance and she is a fall risk. These are all barriers to her discharge home. Currently set up for max assist for ADLs, mod assist for mobility with use of a rolling walker and using a soft neck brace. She plans to return home hopefully at her prior level of functioning. COMORBIDITIES: Include weakness, morbid obesity, large central disk extrusion. She has got scbutovh-wg-rwoeun spinal stenosis, muscle weakness, hyperglycemia, depression, diabetes, history of pancreatitis. PAST MEDICAL HISTORY: Significant for diabetes, gallbladder problems, depression. PAST SURGICAL HISTORY: Includes gallbladder surgery, knee surgery and foot surgery. ALLERGIES: KEFLEX. CURRENT MEDICATIONS: Include polyethylene glycol 17 grams in 8 ounces of water daily, Actos 30 mg daily, insulin 20 units daily, she is on citalopram 40 mg daily, she is on a Medrol Dosepak taper, Ambien 10 mg at bedtime, simvastatin 20 mg at bedtime, she is on low resistant sliding scale of Humalog, Zofran 4 mg HISTORY AND PHYSICAL [id number] MICH MACEDO every 6 hours p.r.n., she is on methocarbamol 750 t.i.d. p.r.n., ibuprofen 800 mg t.i.d., [place] 5/325 one tab every 4 hours p.r.n., is on a glucose replacement protocol at this time, Flexeril 5 mg t.i.d., and MiraLax 17 grams in 8 ounces of water daily. HABITS: No alcohol or tobacco use. FAMILY HISTORY: Noncontributory. SOCIAL HISTORY: The patient hopes to return back home and get back to her prior level of functioning. REVIEW OF SYSTEMS: GENERAL: Does complain of weakness and fatigue. HEENT: Denies cold, cough, or congestion. CARDIOVASCULAR: Denies any chest pain. PHYSICAL EXAMINATION: VITAL SIGNS: Stable, afebrile. GENERAL: A morbidly obese female, in no distress upon exam. HEENT: Normocephalic and atraumatic. Mucosa moist. NECK: Supple. No lymphadenopathy. LUNGS: Clear in upper [place]. No wheezing or rales. HEART: Regular rate and rhythm. No murmurs, rubs or gallops. ABDOMEN: Soft, obese, nontender, nondistended. Positive bowel sounds times 4. EXTREMITIES: No clubbing, cyanosis or edema. NEUROLOGIC: She does have some noted weakness. LABORATORY DATA: Her white count is 12.9 secondary to steroids. Her H&H are 13 and 40, and platelet count is 309. Sodium 136, potassium 3.5, BUN and creatinine of 27 and 0.7, blood sugar is noted to be 236. ASSESSMENT: This is a 34-year-old female patient admitted to rehab with a working diagnosis of traumatic spinal cord contusion status post surgery. The patient has potential to make improvement. We instituted the following multidisciplinary therapies including not limited to physical, occupational, respiratory, speech, nutritional services, prosthetics and orthotics. Given her complex medical condition and risks for more complications, rehabilitation services cannot be provided at a low level of care such as long term facility. PLAN: 1. Admit to [facility] for inpatient therapy to include the following disciplines; A. Physical therapy to improve gait, all transfer skills and bed mobility to a modified independent level. B. Occupational therapy to improve activities of daily living. C. Case management to help with discharge planning and placement options. D. Nutrition to assist with nutritional needs. E. Rehabilitation nursing to assist in monitoring the patient's underlying medical conditions and to assist with any type of bowel or bladder management. 2. The patient's current medication and medical care will be continued. 3. The patient will stay on current medications as prescribed. 4. I will discuss with care team and staff today at noon and see again in the a.m. HISTORY AND PHYSICAL [id number] MICH MACEDO TRANSINT:[id number] Voice Confirmation ID: [id number] DOCUMENT ID: [id number] PATI notes whether there has been none or any medical/functional change since admission: - No change since preadmission screen. PATI attests patient continues to be appropriate for IRF: - Continues to be appropriate. JEANNE TAYLOR MD at 0842 CC: [id number] DICTATION DATE: 08/23/20 0904 STRATEGIC PROCUREMENT MANAGER: 08/23/20 1319 ADM IN [facility] [address] [place] [address]
--- NOTE | 2020-08-25 10:07 | NUR ---
PATIENT DISCHARGING HOME TODAY WITH FAMILY. [facility] WILL PROVIDE THERAPY AT HOME. NO NEW DME NEEDED AT THIS TIME. DR. FONTANEZ 09/04/20 @ 10:45, DR. GARCIA 09/05/20 @ 1:00. CLEM[place] SIGNED, IMM SERVED AND EXPLAINED, ONE GIVEN TO PATIENT AND ONE FILED IN CHART. DISCHARGE INSRUCTIONS FAXED TO PCP, HOME HEALTH. [facility] , AUTH. # [id number] AND REVIEWED WITH PATIENT PER PRIMARY NURSE.
== END 2020-08-25 10:30 | disposition home health service (06) | DRG 950 ==
LOC: D.REHAB 15:54
PROVIDERS: ADMIT Emergency Medicine; ATTEND Emergency Medicine
DX: S14.107D Unspecified injury at C7 level of cervical spinal cord, subsequent encounter (principal); M50.223 Other cervical disc displacement at C6-C7 level; E66.01 Morbid (severe) obesity due to excess calories; F32.9 Major depressive disorder, single episode, unspecified; M62.81 Muscle weakness (generalized); E11.65 Type 2 diabetes mellitus with hyperglycemia; M48.02 Spinal stenosis, cervical region